=== PATIENT | female | born 1945 | race Caucasian/White ===

== ENCOUNTER 2017-07-29 01:50 | Inpatient (IN) | payer OTHER ==
[~2017-07-29] VITALS: Ht 162.6 cm; Wt 104.3 kg
[~2017-07-29 01:50] MED LIST: ATORVASTATIN CA10 M1 PO; LISINOPRIL20 M1 PO; MELOXICAM7.5 M1 PO; VOLTAREN100 GM TOP
--- NOTE | 2017-07-29 07:34 | Operative Report ---
Operative/Inv Procedure Report Surgery Date: 07/29/17 Name of Procedure: Left total knee arthroplasty Pre-Operative Diagnosis: Left knee osteoarthritis Post-Operative Diagnosis: Left knee osteoarthritis Estimated Blood Loss: 50ml to 100ml Surgeon/Web Applications Developer: Marc HORN,HILTON Guerrero Anesthesia: block, spinal Implants: [employer] size 5 left cruciate retaining legion nonporous femoral component. Size 4 Loida II left nonporous tibial baseplate. Loida II biconvex patellar component size 23 mm. Size 34 11 mm Legion cruciate retaining XLPE high flexion articular insert. Complications: None Condition: Stable to PACU Operative Indication: This is a 71-year-old female with long-standing left knee pain that has failed conservative care. Risks and benefits of the procedure were discussed with the patient at length. Risks include but are not limited to nerve damage, muscle damage, infection, blood loss, blood clots, pulmonary embolus, and even . The patient agreed to the above risks and elected to proceed with surgery. Operative/Procedure Note Note: The patient was taken to the operating room. Anesthesia was induced after the timeout was performed. The lower extremity was prepped and draped in the normal sterile fashion. IV antibiotics were given prior to incision. The site marking was visualized prior to incision. After the leg was prepped and draped, an esmarch was used to exsanguinate the extremity. The tourniquet was inflated. A midline incision was made proximal to the patella extending down to the tibial tubercle. A medial parapatellar approach was then made. The skin was retracted and the extensor mechanism was incised. The knee was taken down into full extension. The medial retinaculum was then taken down. The patellar fat pad was resected. The synovium over the distal femur was then resected. The patella was everted and the knee was flexed up. The lateral meniscus was then excised. The ACL was removed. A drill was then used to open up the distal femur. The intramedullary guide was then applied. A 6 distal femoral cut was then made. The femur was then sized. The chamfer guide was then applied. The anterior, posterior, and chamfer cuts were then made while protecting the patellar tendon with a Hohmann retractor and the medial collateral ligament with a Z retractor. A pickle fork was then used to deliver the tibia. The extramedullary tibial guide was then applied. The proximal tibial cut was made. The medial and lateral meniscus were then excised. The osteophytes were removed with a Rongeur. The femur was lifted and the posterior knee was checked for any osteophytes. The tibia was sized and the trial base plate was then pinned in place. A trial femoral component was placed and a trial polyethylene insert was then applied as well. The knee was taken through a range of motion and was noted to be quite stable. The patella was then everted, sized, and then reamed. A trial patellar component was placed and the knee was taken through range of motion. The patella was noted to be quite stable. The femur was then punched. The tibial fin punch was then used. All trial instruments were then removed. The knee was copiously irrigated. Retractors were placed and the final components were then cemented in. A trial polyethylene insert was then placed. After the cement hardened, the excess cement was removed. The trial poly-insert was then removed. The knee was copiously irrigated. The final poly insert was inserted. The tourniquet was let down. Any bleeding vessels were identified and cauterized. A 1/8 inch Hemovac drain was then placed. The extensor mechanism was closed with #1 Vicryl suture in a simple interrupted fashion. The skin was closed with 2-0 Vicryl suture. A running subcuticular 4-0 Monocryl stitch was then placed. Dermabond was applied. A dry sterile dressing was placed and patient was transferred to PACU in stable condition.
--- NOTE | 2017-07-29 10:02 | Patient Discharge Instructions ---
Discharge Instructions General Discharge Information You were seen/treated for: LEFT DARRON OSTEOARTHRITIS You had these procedures: LEFT TOTAL KNEE ARTHROPLASTY Watch for these problems: Increasing pain despite the use of pain medication Increasing redness, warmth or swelling Drainage of any type from incision Inability to bear weight on operative leg Persistent nausea and vomiting Fever greater than 101.5 degrees Call Surgeon to remove: Struthers (WOUND CHECK 2 WEEKS) Do not soak the wound: No Daily wet to dry dressings: No Other wound care: Please keep wound clean and dry. No ointments or lotions of any type on or near incision. Your dressing will be changed by your nurse on the second day after your surgery. Daily dry dressing changes are recommended each day thereafter. Do not soak your wound- no tub baths/swimming. You may shower 48hr after surgery. Take pain medication as needed Call with any signs of fever, flulike illness, worsening swelling, worsening pain or drainage from the wound Special Instructions: Constipation: Pain medication can cause constipation. It is recommended that you take Colace and Miralax each Discontinue this medication if you develop loose stool or diarrhea. If you wish to continue this medication, it is available over the counter. If you are unable to move your bowels or unable to pass gas and are developing bloating, nausea, or vomiting as a result, please contact your doctor. LOVENOX INJECTIONS ARE FOR DVT PROPHALAXIS -BLOOD CLOTS IN THE LEGS 40MG INJECTION EVERY DAY FOR 1 MONTH Diet Continue normal diet: Yes Activity Full Activity/No Limits: No (NO STRENUOUS ACTIVITY) Activity Self Limited: Yes Additional ACTIVITY Info: WBAT WITH ASSITANCE OF WALKER OR CANE Acute Coronary Syndrome Inclusion Criteria At DC or during hospital stay patient has or had the following: ACS DIAGNOSIS No Discharge Core Measures Meds if any: Prescribed or Continued at Discharge Meds if any: NOT Prescribed or Continued at Discharge Congestive Heart Failure Inclusion Criteria At DC or during hospital stay patient has or had the following: CHF DIAGNOSIS No Discharge Core Measures Meds if any: Prescribed or Continued at Discharge Meds if any: NOT Prescribed or Continued at Discharge Cerebrovascular accident Inclusion Criteria At DC or during hospital stay patient has or had the following: CVA/TIA Diagnosis No Discharge Core Measures Meds if any: Prescribed or Continued at Discharge Meds if any: NOT Prescribed or Continued at Discharge Venous thromboembolism Inclusion Criteria VTE Diagnosis No VTE Type NONE VTE Confirmed by (Test) NONE Discharge Core Measures - Per Current guidelines, there needs to be overlap - treatment for the first 5 days of Warfarin therapy. - If discharged on Warfarin prior to 5 days of - overlap therapy, the patient will need to be - assessed for post discharge needs including - *Post discharge parental anticoagulation - *Warfarin and/or parental anticoagulation education - *Follow up date to check INR post discharge At least 5 days overlap therapy as Inpatient No Meds if any: Prescribed or Continued at Discharge Note: Overlap Therapy is Warfarin and Anticoagulant Meds if any: NOT Prescribed or Continued at Discharge
[2017-07-29] MEDS ORDERED: SENNA8.6 M3 PO (10:05)
[2017-07-29] MEDS ORDERED: PERCOCET 5-3251 EACH PO (10:05)
[2017-07-29] MEDS ORDERED: LOVENOX40 MG/0.1 SC ×2 (10:05→11:35)
[2017-07-29] MEDS ORDERED: COLACE100 M1 PO (10:05)
--- NOTE | 2017-07-29 10:10 | Admission Core Measures ---
Acute Coronary Syndrome (CM) ACS Core Measures Acute Coronary Syndrome Diagnosis No Congestive Heart Failure (NEW) CHF Core Measures Congestive Heart Failure Diagnosis No Cerebrovascular Accident CVA Core Measures CVA/TIA Diagnosis No Venous Thromboembolism VTE Core Shaista (View Protocol) VTE Risk Factors Surgery No Mechanical VTE Prophylaxis d/t N/A MechProphylax Ordered No VTE Pharm Prophylaxis d/t NA PharmProphylax ordered Problem List As ranked by this Provider includes Assessment & Plan 1. Osteoarthritis of left knee HOME MEDS Home Med List Atorvastatin Calcium 10 MG TABLET 1 TAB PO DAILY CHOLESTEROL (Reported) Diclofenac Sodium (Voltaren) 1 % GEL..GRAM. 1 GM TOP 4 TIMES/DAY PAIN ( Reported) Docusate Sodium (Colace) 100 MG CAPSULE 1 CAP PO BID PREVENT CONSTIPATION Enoxaparin Sodium (Lovenox) 40 MG/0.4 ML SYRINGE 0.3 ML SC Q12 DVT PROPHALAXIS Lisinopril 20 MG TABLET 1 TAB PO DAILY HTN (Reported) Meloxicam 7.5 MG TABLET 1 TAB PO DAILY PAIN (Reported) Oxycodone HCl/Acetaminophen (Percocet 5-325 MG Tablet) 5 MG-325 MG TABLET 1 TAB PO TID PAIN Sennosides (Senna) 8.6 MG TABLET 2 TAB PO DAILY CONSTIPATION
--- NOTE | 2017-07-29 10:16 | Surg Short-stay <48hrs Dis Sum ---
Visit Information Visit Dates Admission Date: 07/29/17 Discharge Date: 07/31/17 Surgical Short Stay DC Summary Admission Diagnosis: left knee osteoarthritis Final Diagnosis: left knee osteoarthritis Procedure(s): left Total knee arthroplasty Summary/Significant Findings: Patient was admitted to the hospital for an elective total joint replacement. Procedure was tolerated well and patient was transferred to a general surgical floor. Diet was advanced and tolerated. Physical therapy performed evaluation and treatment. At time of hospital discharge, vital signs were stable, neurovascular status was intact, and pain was controlled with the use of oral pain medications. Follow up with Dr. Tran in 2 weeks from date of surgery. Please call his office to schedule/confirm this appointment. Condition at Discharge: stable Discharge Disposition: home health services Discharge instructions provided to patient/family: Yes Post discharge follow-up plan: follow-up in 2 weeks Copies to: Marc HORN,Elmer
[2017-07-29] MEDS ORDERED: LOVENOX30 MG/0.1 SC (11:27)
[2017-07-29 12:59] VITALS: BP 142/78
[2017-07-29 15:00] VITALS: BP 140/80
--- NOTE | 2017-07-29 15:59 | PN- Orthopedic ---
Subjective Subjective: PATIENT SITTING IN CHAIR NO COMPLAINTS, PAIN CONTROLLED TOLARATING POs Objective Vital Signs and I&Os Vital Signs Date Time Temp Pulse Resp B/P B/P Pulse O2 O2 Flow FiO2 Mean Ox Delivery Rate 07/29 1500 98.7 93 20 140/80 94 Room Air 07/29 1259 97.5 64 18 142/78 99 Room Air Room Air Intake & Output 07/29 1600 07/29 0800 07/29 0000 07/28 1600 07/28 0800 07/28 0000 Intake Total 900 Output Total 650 Balance 250 Intake, IV 300 Intake, Oral 600 Output, Urine 650 Patient 230 lb Weight Weight Reported by Patient Measurement Method Physical Exam: VVS AFEBRILE DRAIN WITH 30CC LEFT LEG -LANA WRAP IN PLACE, NO DRAINAGE CALVES SOFT DISTAL PULSES INTACT HEART -RRR WITHOUT MRG CHEST- CTA SYMMETRIC Assessment/Plan Assessment/Plan POSTOP CHECK AFTER LEFT TKA PT TO SEE PATIENT ADVANCE DIET D/C VILLARREAL LOVENOX STARTING TOMORROW FOR DVT PROPHALAXIS ON KEFZOL FOR 2 MORE DOSES PULL DRAIN IN AM IF OUTPUT LOW Core Measures Venous Thromboembolism VTE Risk Factors Surgery No Mechanical VTE Prophylaxis d/t N/A MechProphylax Ordered No VTE Pharm Prophylaxis d/t NA PharmProphylax ordered
[2017-07-29 17:00] VITALS: BP 140/82
[2017-07-29 18:56] VITALS: BP 130/74
[2017-07-29 22:01] VITALS: BP 124/83
[2017-07-30 03:48] VITALS: BP 119/76
[2017-07-30 06:57] VITALS: BP 132/77
[2017-07-30 08:11] LABS: ABSOLUTE BASOPHIL COUNT 0 /CUMM (0.0-0.2); ABSOLUTE EOSINOPHIL COUNT 0 /CUMM (0.0-0.7); ABSOLUTE GRANULOCYTE CT 12.2 /CUMM (1.4-6.5); ABSOLUTE LYMPH COUNT 1.3 /CUMM (1.2-3.4); ABSOLUTE MONOCYTE COUNT 1.1 /CUMM (0.10-0.60); BASOPHIL % 0.1 % (0.0-2.0); EOSINOPHIL % 0 % (0-5); HEMATOCRIT 29.5 % (37-47); MEAN CORPUSCULAR HGB 28.6 PG (27.0-31.0); MEAN CORPUSCULAR HGB CONC 33.5 G/DL (33.0-37.0); MEAN CORPUSCULAR VOLUME 85.2 FL (81.0-99.0); PLATELET COUNT 231 /CUMM (130-400); RBC DISTRIBUTION WIDTH 13.4 % (11.5-14.5); RED BLOOD CELL CT 3.46 /CUMM (4.20-5.40); WHITE BLOOD CELL COUNT 14.6 /CUMM (4.8-10.8)
--- NOTE | 2017-07-30 08:55 | PN- Orthopedic ---
Subjective Subjective: Patient sitting in chair says she has no pain. Tolerating regular diet, voiding. Ambulating with physical therapy, has been cleared on stairs. Denies chest pain, shortness of breath, headache, dizziness. Denies paresthesias Objective Vital Signs and I&Os Vital Signs Date Time Temp Pulse Resp B/P B/P Pulse O2 O2 Flow FiO2 Mean Ox Delivery Rate 07/30 0657 98.1 69 18 132/77 98 Room Air 07/30 0348 98.7 71 20 119/76 95 Room Air 07/29 2201 98.4 89 20 124/83 94 Room Air 07/29 1856 98.0 109 20 130/74 96 Room Air 07/29 1700 99.1 106 20 140/82 96 Room Air 07/29 1500 98.7 93 20 140/80 94 Room Air 07/29 1259 97.5 64 18 142/78 99 Room Air Room Air Intake & Output 07/30 1600 07/30 0800 07/30 0000 07/29 1600 07/29 0800 07/29 0000 Intake Total 740 990 900 Output Total 610 590 650 Balance 130 400 250 Intake, IV 260 30 300 Intake, Oral 480 960 600 Number 0 0 Bowel Movements Output, 135 40 Drainage Output, Urine 475 550 650 Patient 230 lb Weight Weight Reported by Patient Measurement Method Physical Exam: Generalno acute distress Respirationsclear bilaterally Cardiacregular rate and rhythm Abdomensoft, nondistended, nontender Extremitiesleft knee dressing clean and dry, no calf tenderness. Distal sensory and motor function intact. 2+ DP pulse. Drain in place. Output 40 cc/ 2H sanguinous Current Medications: Current Medications Sig/Mary Start time Last Medication Dose Route Stop Time Status Admin Acetaminophen 1,000 MG Q8H 07/30 1400 UNVr PO Acetaminophen 1,000 MG Q6 07/29 1200 DC 07/30 IV 07/30 0601 0631 Acetaminophen 1,000 MG .STK-MED ONE 07/29 1016 DC IV 07/29 1017 Acetaminophen 975 MG ONCE 07/29 0000 DC PO 07/29 2359 Atorvastatin Calcium 10 MG DAILY 07/30 0900 DC PO Atorvastatin Calcium 10 MG DAILY 07/30 0900 AC 07/30 PO 0754 Cefazolin Sodium 2 GM IQ8 07/29 1600 DC 07/30 N/A 1 UNIT IV 07/30 0029 0029 Cefazolin Sodium 2,000 MG ONCE 07/29 0000 DC IV 07/29 2359 Docusate Sodium 100 MG BID 07/29 2100 AC 07/30 PO 0754 Docusate Sodium 100 MG DAILY NEEDED PRN 07/29 0945 DC PO Enoxaparin Sodium 30 MG DAILY 07/30 0900 DC SC Enoxaparin Sodium 30 MG BID 07/30 0900 CAN SC Enoxaparin Sodium 40 MG DAILY 07/30 0900 AC 07/30 SC 0846 Ketorolac 15 MG Q8 PRN 07/30 0849 UNVr Tromethamine IV Ketorolac 15 MG Q8 07/29 1400 DC 07/30 Tromethamine IV 08/01 0601 0545 Lisinopril 20 MG DAILY 07/30 0900 DC PO Lisinopril 20 MG DAILY 07/30 0900 AC 07/30 PO 0754 Morphine Sulfate 2 MG Q2P PRN 07/29 0945 AC IV Ondansetron HCl 4 MG Q6P PRN 07/29 0945 AC IV Oxycodone HCl 5 MG Q4P PRN 07/29 1245 AC 07/30 PO 0756 Oxycodone HCl 10 MG Q4P PRN 07/29 1245 AC PO Oxycodone HCl 10 MG ONCE 07/29 0000 DC PO 07/29 2359 Oxycodone/ 1 TAB Q4P PRN 07/29 0945 DC Acetaminophen PO Oxycodone/ 2 TAB Q4P PRN 07/29 0945 DC Acetaminophen PO Polyethylene Glycol 17 GM DAILY 07/30 0900 AC 07/30 PO 0754 Senna/Docusate Sodium 2 TAB AT BEDTIME NEED.. 07/29 0945 AC PO Sodium Chloride 1,000 ML .[id number] 07/29 0945 DC 07/29 IV 1246 Results Last 48 Hours of Labs: Laboratory Tests 07/30 0710 Chemistry Sodium Pending Potassium Pending Chloride Pending Carbon Dioxide Pending Anion Gap Pending BUN Pending Creatinine Pending BUN/Creatinine Ratio Pending Hematology CBC w Diff Pending WBC Pending RBC Pending Hgb Pending Hct Pending MCV Pending MCH Pending MCHC Pending RDW Pending Plt Count Pending MPV Pending Gran % Pending Lymphocytes % Pending Monocytes % Pending Eosinophils % Pending Basophils % Pending Absolute Granulocytes Pending Absolute Lymphocytes Pending Absolute Monocytes Pending Absolute Eosinophils Pending Absolute Basophils Pending Assessment/Plan Assessment/Plan 71-year-old female status post left total knee arthroplasty postop day 1. Stable Keep drain in place until output decreases Dressing change postop day 2 Physical therapyweight-bear as tolerated with rolling walker Continue current pain regimen DVT prophylaxisLovenox Bowel regimen Follow-up a.m. labs Regular diet DC planningmisenheimer home tomorrow with health services Core Measures Venous Thromboembolism VTE Risk Factors Surgery No Mechanical VTE Prophylaxis d/t N/A MechProphylax Ordered No VTE Pharm Prophylaxis d/t NA PharmProphylax ordered
[2017-07-30 09:45] LABS: GRANULOCYTE % 83.3 % (42.2-75.2)
[2017-07-30] MEDS ORDERED: RW (12:06)
[2017-07-30 15:26] VITALS: BP 120/64
[2017-07-30 22:15] VITALS: BP 144/90
[2017-07-31 06:11] VITALS: BP 152/92
[2017-07-31 08:50] VITALS: BP 152/92
--- NOTE | 2017-07-31 08:58 | PN- Orthopedic ---
Subjective Subjective: Patient feeling well, no acute events overnight, no fever no flulike illness, mild increase in pain in the anterior part of the knee this morning. Objective Vital Signs and I&Os Vital Signs Date Time Temp Pulse Resp B/P B/P Pulse O2 O2 Flow FiO2 Mean Ox Delivery Rate 07/31 0611 98.7 74 20 152/92 99 07/30 2215 98.8 80 18 144/90 96 Room Air 07/30 1526 98.6 73 20 120/64 98 Room Air Intake & Output 07/31 1600 07/31 0800 07/31 0000 07/30 1600 07/30 0800 07/30 0000 Intake Total 600 1000 740 990 Output Total 1060 820 930 610 590 Balance -1060 -220 70 130 400 Intake, IV 260 30 Intake, Oral 600 1000 480 960 Number 0 0 Bowel Movements Output, 60 70 80 135 40 Drainage Output, Urine 1000 750 850 475 550 Physical Exam: Well-developed well-nourished no apparent distress. HEENT: Atraumatic, extraocular motion intact Neck: Supple, no lymphadenopathy Respiratory: No respiratory distress Extremities: No edema LEFT lower extremity dressing in place, Dressing is clean dry and intact. No signs of infection. Mild joint effusion Range of motion is 0-60. Compression wrap in place. ALPS in place Neurovascularly intact distally Bilateral calves are supple, nontender. Neuro: Alert and oriented x3 Psych: Mood affect normal, normal memory normal judgment. Skin: Warm and dry, no rash on exposed skin DANNY drain output last 24 hours: 60/30/20 Assessment/Plan Assessment/Plan Postop day #2 status post left total knee arthroplasty Perioperative antibiotics. DANNY drain removed by myself at the bedside without incident, approximately 20 cc of bloody drainage noted in the drain at time of removal Pain medication as needed. Out of bed Physical therapy, weightbearing as tolerated Lovenox for DVT prophylaxis ALPS for DVT prophylaxis Regular home meds Discharge to home today with [facility] services Core Measures Venous Thromboembolism VTE Risk Factors Surgery No Mechanical VTE Prophylaxis d/t N/A MechProphylax Ordered No VTE Pharm Prophylaxis d/t NA PharmProphylax ordered
== END 2017-07-31 12:40 | disposition home health service (06) | DRG 470 ==
LOC: SDA 01:50 → ENRESERV 10:28 → ENTRNSPT 12:14 → EDTRNSPTSTS 12:27 → EDTRNSPT 12:27 → 2NB 12:32 → CMPTRNSPT 12:59 → ENPENDDIS 07-31 09:02 → 2NB 07-31 12:40
PROVIDERS: Physician Assistant
PROC: 0SRD0J9 Replacement of Left Knee Joint with Synthetic Substitute, Cemented, Open Approach (ICD-10-PCS; principal; 2017-07-29)
PROC: 3E0T3BZ Introduction of Anesthetic Agent into Peripheral Nerves and Plexi, Percutaneous Approach (ICD-10-PCS; principal; 2017-07-29)
DX: M17.12 Unilateral primary osteoarthritis, left knee (principal); I10 Essential (primary) hypertension; E78.5 Hyperlipidemia, unspecified; Z85.3 Personal history of malignant neoplasm of breast; Z96.641 Presence of right artificial hip joint
CPT/HCPCS: 2NBP; 36415; 82436; 87086; 97110-GO; 97116-GO; 97161-GP; 97530-GO; C1713; C9290; J0131; J0690; J1650; J1885; J2405